=== PATIENT | male | born 1960 | race Caucasian/White ===

== ENCOUNTER 2020-03-01 20:14 | Inpatient (IN) | payer OTHER, SELFPAY ==
--- NOTE | ~2020-03-01 | XR_ITS ---
EXAMINATION: XR chest 2V DATE: 03/01/2020 21:01 INDICATION: Chest pain and tightness TECHNIQUE: PA and lateral views of the chest are obtained. COMPARISON: None available FINDINGS: The lungs are free of acute opacities. There is no pleural effusion or pneumothorax. The ca rdiomediastinal silhouette is normal. There is mild thoracic spondylosis. IMPRESSION: 1. No acute cardiopulmonary abnormality. Reviewed, dictated and finalized at location A.
[2020-03-01 20:13] VITALS: BP 134/79; PULSE 89; RESP 20; TEMP 36.7; O2SAT 98
--- NOTE | 2020-03-01 20:28 | ECG_ITS ---
Measurements Intervals [place] Rate: 87 P: 31 GA: 232 QRS: 35 QRSD: 108 T: -11 QT: 383 QTc: 462 Interpretive Statements SINUS RHYTHM WITH FIRST DEGREE AV BLOCK BORDERLINE R WAVE PROGRESSION, ANTERIOR LEADS BORDERLINE ST-T WAVE ABNORMALITY- INF/LAT LEADS BASELINE WANDER- III, AVF, V2 ABNORMAL ECG Electronically Signed On 03-02-2020 7:00:37 CDT by Ronan Downing D.O.
[2020-03-01 20:30] VITALS: BP 139/82; PULSE 87; RESP 21; O2SAT 97
[2020-03-01 20:34] VITALS: PULSE 88
[2020-03-01 20:35] LABS: Basophils Absolute Auto 0.1 K/mm3 (0.0-0.1); Basophils Percent Auto 0.6 % (0.2-1.2); Eosinophils Absolute Auto 0.2 K/mm3 (0-0.3); Eosinophils Percent Auto 2.7 % (0-4.4); Hematocrit 46.3 % (42.0-52.0); Hemoglobin 15.2 g/dL (14.0-18.0); Immature Granulocyte Absolute 0.08 K/mm3 (0.00-0.031); Immature Granulocyte Percent A 0.9 % (0-0.5); Lymphocytes Absolute Auto 1.42 K/mm3 (0.9-3.2); Lymphocytes Percent Auto 16.3 % (18.3-44.2); Mean Corpuscular HGB Conc 32.8 g/dl (32-36); Mean Corpuscular Hemoglobin 30.3 pg (26-34); Mean Corpuscular Volume 92.2 fl (80-100); Mean Platelet Volume 9.9 fl (7.4-10.4); Monocytes Absolute Auto 0.5 K/mm3 (0.1-0.6); Monocytes Percent Auto 6.2 % (2.6-8.5); Neutrophils Absolute Auto 6.4 K/mm3 (1.3-6.7); Neutrophils Percent Auto 73.3 % (45.5-73.1); Platelet Count Result 261 k/mm3 (150-375); Red Blood Count 5.02 M/mm3 (4.6-6.20); Red Cell Distribution Width 13.2 % (11.5-14.5); White Blood Count 8.7 K/mm3 (4.5-10.0)
[2020-03-01 20:54] LABS: Blood Urea Nitrogen 19 mg/dL (9-20); Calcium 8.9 mg/dL (8.4-10.2); Carbon Dioxide 20 mmol/L (22-30); Chloride 105 mmol/L (98-107); Estimated CRCL calculation 86 ml/min; Estimated Glomerular Filt Rate > 60; Glucose 117 mg/dL (75-110); Potassium 3.8 mmol/L (3.4-5.0); Sodium 138 mmol/L (137-145)
--- NOTE | 2020-03-01 20:57 | ED.CHESTPAIN ---
HPI - Chest Pain General Chief Complaint: Chest Pain Stated Complaint: cp History of Present Illness HPI narrative: 60 yo male w/ h/o CAD s/p stent x2 presents to the ED with CP. He has had exertional chest pain for weeks. It has been becoming more frequent and severe. Tonight he was having pain that failed to resolve with rest. The pain is described as constant and sharp. It radiates to the left arm. Associated with SOB. These are similar to the symptoms he was having prior to receiving his stent. He was given nitroglycerin by EMS, which greatly improved the pain. He took aspirin at home. No cough, fever, sick contacts. Related Data Home Medications Medication Instructions Recorded Confirmed amlodipine 10 mg PO DAILY 03/01/20 aspirin [Adult Low Dose Aspirin] 81 mg PO DAILY 03/01/20 citalopram 40 mg PO DAILY 03/01/20 diclofenac sodium 100 mg PO DAILY 03/01/20 loratadine 10 mg PO DAILY 03/01/20 metoprolol tartrate 100 mg PO BID 03/01/20 rosuvastatin 40 mg PO DAILY 03/01/20 Allergies Allergy/AdvReac Type Severity Reaction Status Date / Time No Known Allergies Allergy Unverified 03/01/20 20:37 Review of Systems Review of Systems: All systems reviewed & are unremarkable except as noted in HPI and below Constitutional: Constitutional: Denies chills and Denies fever(s) ENT: Denies sore throat Cardiovascular: Cardiovascular: Reports chest pain and Reports radiating jaw, neck or arm pain Respiratory: Respiratory: Denies cough and Reports dyspnea Gastrointestinal: Gastrointestinal: Denies nausea and Denies vomiting Neurologic: Denies dizziness, Denies numbness and Denies weakness [facility] Past Medical History Medical History (Updated 03/02/20 @ 00:56 by Torito Edwards MD) CAD (coronary artery disease) Surgical History Surgical History H/O cardiac catheterization Stented coronary artery Family History Family History Other Diabetes mellitus Social History Social History Smoking status: Former smoker Tobacco type: cigarettes Second hand tobacco smoke exposure: Yes Alcohol intake: current Drinks per week: 4 Substance use: never Substance use type: does not use Other substance usage details: drinks everclear mixed drinks Spiritual care concerns: No Agree to blood products: Yes Exam Const: General: no acute distress and alert Nutritional Appearance: obese Orientation/consciousness: patient oriented x3 HENMT: Head: normal to inspection Resp: Effort & Inspection: normal respiratory effort Auscultation: clear to auscultation bilaterally Cardio: Rate: regular rate Rhythm: regular rhythm Skin: General skin exam: normal color Neuro: General: patient oriented x3, moves all extremities, no focal motor deficits and CN's II-XI intact bilaterally Speech: normal speech Extrem: General: edema bilateral (trace) Psych: Appearance: grossly normal and well kempt Mental Status: mental status grossly normal Affect: normal affect Attitude: cooperative Thought content: Yes Normal thought content present Course Vital Signs Vital signs: Vital Signs Temperature 36.7 C 03/01/20 20:13 Pulse Rate 89 03/01/20 20:13 Respiratory Rate 20 03/01/20 20:13 Blood Pressure 134/79 03/01/20 20:13 Pulse Oximetry 98 03/01/20 20:13 Temperature 36.7 C 03/01/20 23:20 Pulse Rate 88 03/01/20 23:20 Respiratory Rate 20 03/01/20 23:20 Blood Pressure 152/69 H 03/01/20 23:20 Pulse Oximetry 98 03/01/20 23:20 MDM - Chest Pain MDM Narrative Medical decision making narrative: No sign of acute ischemia on EKG. Mild elevation in troponin. History very concerning for ACS. Will plan to admit. Case discussed with Dr. Medeiros. Recommends heparin. They will see him as a consult tomorrow. Differential Diagnosis Differential diagnosis: Likely unstable angina
[2020-03-01 21:14] LABS: Troponin I 0.115 ng/mL (0.000-0.034)
[2020-03-01 21:37] LABS: Prothrombin Time 12.4 Seconds (11.1-14.7)
[2020-03-01 21:38] LABS: Partial Thromboplastin Time 29.2 SECONDS (22.3-36.8)
[2020-03-01 21:48] LABS: NT Pro B Type Natriuretic Pept 164 PG/ML (5-100)
[2020-03-01] MEDS: NITROGLYCERIN OINTMENT 1 INCH DOSE TRANSDERM (22:41)
[2020-03-01] MEDS: HEPARIN SODIUM 5,000 UNITS/ML VIAL 4000 UNITS IV PUSH (22:45)
[2020-03-01] MEDS: HEPARIN SOD/D5W 100 UNITS/ML 25,000 UNITS/250 ML BAG 10 UNITS IV CONT (22:46)
[2020-03-01 22:54] VITALS: BP 140/78; PULSE 87; RESP 20; O2SAT 98
[2020-03-01 23:20] VITALS: BP 152/69; PULSE 88; RESP 20; TEMP 36.7; O2SAT 98; BMI 41.4
--- NOTE | 2020-03-01 23:32 | PC.NURSE ---
This patient, Kasi Vernon, was admitted to IMU Room 201-01. Patient/family oriented to hospital policies and general routines including ID bracelet, bed and alarms, visiting hours, pain management, procedures, bathroom and other care routines, personal items, smoking policy, room service/diet, and visiting hours. Valuables list has been completed. Information on how to activate the Rapid Response Team has been discussed. Patient/Family are encouraged to report perceived risks to care and to ask questions if they do not understand what they are told or what they should do.
[2020-03-01 23:34] VITALS: BMI 41.2
[2020-03-01 23:39] LABS: Basophils Percent Auto 0.4 % (0.2-1.2); Eosinophils Absolute Auto 0.2 K/mm3 (0-0.3); Eosinophils Percent Auto 1.7 % (0-4.4); Hematocrit 43.2 % (42.0-52.0); Hemoglobin 14.3 g/dL (14.0-18.0); Immature Granulocyte Absolute 0.07 K/mm3 (0.00-0.031); Immature Granulocyte Percent A 0.7 % (0-0.5); Lymphocytes Absolute Auto 1.85 K/mm3 (0.9-3.2); Lymphocytes Percent Auto 19.4 % (18.3-44.2); Mean Corpuscular HGB Conc 33.1 g/dl (32-36); Mean Corpuscular Hemoglobin 30.2 pg (26-34); Mean Corpuscular Volume 91.1 fl (80-100); Monocytes Absolute Auto 0.6 K/mm3 (0.1-0.6); Monocytes Percent Auto 5.8 % (2.6-8.5); Neutrophils Absolute Auto 6.9 K/mm3 (1.3-6.7); Platelet Count Result 287 k/mm3 (150-375); Red Blood Count 4.74 M/mm3 (4.6-6.20); Red Cell Distribution Width 13.1 % (11.5-14.5); White Blood Count 9.5 K/mm3 (4.5-10.0)
[2020-03-01 23:50] LABS: Prothrombin Time 12.8 Seconds (11.1-14.7)
[2020-03-01 23:57] LABS: Partial Thromboplastin Time 198.6 SECONDS (22.3-36.8)
[2020-03-02] VITALS (26 sets, daily range): BP systolic 113–163; BP diastolic 61–105; PULSE 65–99; RESP 12–20; TEMP 36.1–37.5; O2SAT 96–100
[2020-03-02 00:07] LABS: Troponin I 0.762 ng/mL (0.000-0.034)
--- NOTE | 2020-03-02 03:22 | PM.IMHP ---
H&P: HPI History of Present Illness Chief complaint: Chest pain Narrative: Date and time of patient contact: 03/02/2020 at 4:30 a.m. Kasi Vernon is a 60 year old male with a past medical history of hypertension, hyperlipidemia and coronary artery disease who presented to the ER from home via EMS due to chest pain. The patient reports that he had an intense pain across his precordium and down into his left arm. He had been having some dyspnea even with minimal exertion on and off ever since he started having to wear a face mask at work due to COVID-19. On Saturday he started having chest pain while at work that would radiate down his left arm and to a lesser extent into his right arm. He decided to come to the ER when the chest pain occurred while at rest. He reports that the pain had occurred too many times in a row and too frequently over the last week for him to ignore anymore. He reports that it would sometimes last a couple of hours. His pain was an 8/10 at its worst. His pain was improved with nitro given by EMS. patient reported that he had an LA in 2011 and had a stent placed in his RCA and in his ACL. He reportedly had 100% stenosis of his RCA and 90% of his other vessel. It sounds as if he was on dual antiplatelet therapy at least for the 1st year. He denies any cough or congestion. He has not had any fevers or chills. He does have dependent edema but wear support hose at work. He stands for most of his shift at work. He is otherwise in active and lives a sedentary lifestyle. 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 He last saw him 2 years ago and is supposed to see him every 3 years per patient report. He reports that he is taking diclofenac for pain relief. However, he reports that his muscles generally her more than is joints do. He states that he has an old prescription for Flexeril which he takes occasionally. He reports that he has been diagnosed with fibromyalgia in the past. He thinks that he does snore. He rarely feels well rested. He reports that some of his shortness of breath is due to chronic nasal congestion. His doctor has been adjusting his medications to help with his sinus issues. He has chronic postnasal drip. He is supposed have a CT of his sinuses next month. Review of Systems Review of Systems: Narrative: 12 systems were reviewed with pertinent positives and negatives per HPI. Except as documented in the HPI, all other systems were reviewed and are negative. [facility] Past Medical History Medical History (Updated 03/02/20 @ 05:19 by Ashley Gauthier DO) Anxiety Bilateral plantar fasciitis CAD (coronary artery disease) Depression Dyslipidemia Essential hypertension Fibromyalgia Heel spur Obesity Surgical History Surgical History (Updated 03/02/20 @ 03:26 by Ashley Gauthier DO) Cyst of skin and subcutaneous tissue Status post I&D H/O cardiac catheterization 2011 History of hemorrhoidectomy December 2015 Hx of tonsillectomy Stented coronary artery 2 stents 2011 Family History Family History (Updated 03/02/20 @ 05:19 by Ashley Gauthier DO) Mother Osteoporosis Grandparent Heart disease Diabetes mellitus Social History Social History (Updated 03/02/20 @ 05:17 by Ashley Gauthier DO) Social History: Code status: Full code Smoking status: Former smoker Tobacco type: cigarettes Second hand tobacco smoke exposure: Yes Additional smoking assessment comments: He smoked about half a pack per day for 13 years. He quit in 1989. 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 He quit drinking altogether for many years but in last couple of years and started drinking again. He reports that he drinks 3 shots of ever clear mixed in a bottle of Gatorade. He drinks 1 of these each night. He has went a total of 4 days without drinking in the recent past without having withdrawal
[2020-03-02 05:12] LABS: Basophils Percent Auto 0.4 % (0.2-1.2); Eosinophils Absolute Auto 0.2 K/mm3 (0-0.3); Eosinophils Percent Auto 2.9 % (0-4.4); Hematocrit 42.7 % (42.0-52.0); Hemoglobin 14.3 g/dL (14.0-18.0); Immature Granulocyte Absolute 0.06 K/mm3 (0.00-0.031); Immature Granulocyte Percent A 0.7 % (0-0.5); Lymphocytes Absolute Auto 2.47 K/mm3 (0.9-3.2); Mean Corpuscular HGB Conc 33.5 g/dl (32-36); Mean Corpuscular Hemoglobin 30.3 pg (26-34); Mean Corpuscular Volume 90.5 fl (80-100); Mean Platelet Volume 9.6 fl (7.4-10.4); Monocytes Absolute Auto 0.6 K/mm3 (0.1-0.6); Monocytes Percent Auto 7.1 % (2.6-8.5); Neutrophils Absolute Auto 4.8 K/mm3 (1.3-6.7); Neutrophils Percent Auto 58.9 % (45.5-73.1); Platelet Count Result 270 k/mm3 (150-375); Red Blood Count 4.72 M/mm3 (4.6-6.20); White Blood Count 8.2 K/mm3 (4.5-10.0)
[2020-03-02 05:24] LABS: Partial Thromboplastin Time 51.8 SECONDS (22.3-36.8)
[2020-03-02] MEDS: HEPARIN SODIUM 5,000 UNITS/ML VIAL 4000 UNITS IV PUSH (06:21)
--- NOTE | 2020-03-02 08:17 | PM.CNCAR ---
Assessment and Plan Assessment and plan (1) Non-ST elevation ME (NSTEMI): Code(s): I21.4 - Non-ST elevation (NSTEMI) myocardial infarction Status: Acute Assessment and Plan: 60 y/o with h/o CAD s/p PCI in 2011 who presents now with chest pain and NSTMI Pain free now. Check serial EKG follow trop to peak. Last was 1.5 Continue heparin drip Check 2D echocardiogram Will plan [facility] today at noon. Procedure explained to patient in details including risk and benefits. Patient is agreeable to proceed. Continue ASA. Would hold off loading with second antiplatlet agent till anatomy is identified as may potentially need CABG. Continue Crestor. Continue Metoprolol. (2) HTN (hypertension): Code(s): I10 - Essential (primary) hypertension Status: Acute Assessment and Plan: Continue Metoprolol and Amlodipine. (3) HLD (hyperlipidemia): Code(s): E78.5 - Hyperlipidemia, unspecified Status: Acute Assessment and Plan: Continue Crestor. History of Present Illness History of Present Illness Consult date/time: 03/02/20 08:17 60 y/o with h/o obesity, HTN, HLD, CAD who presented with chest pain. Patient reports dyspnea over the last few weeks that he has been contributing to the N95 mask he has been wearing at work. Since Saturday he started developing chest initially with exertion (at work) then progressed to develop with minimal exertion like walking to the bathroom. He describe the pain as pressure across the chest that radiates down to the left arm. His pain improved since received nitro in ER. He had residual pain last night that resolved after had nitro paste placed. EKG shows normal sinus rhythm with intra ventricular delay and lateral ST changes. Trop came positive at 1.5 consistent with NSTMI. Patient underwent PCI with 2 stents at [facility] in 2011 (per pt one in RCA for 100% stenosis and another in artery he does not recall). He is not sure if he had heart attack at that time or not. 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 He has been compliant though with his medications including ASA and Crestor. He quit smoking in . No family history of heart disease. Reason For Visit: Chest pain Review of Systems Review of Systems: All systems reviewed & are unremarkable except as noted in HPI and below Constitutional: Constitutional: Denies fatigue and Denies headache(s) Eyes: Eyes: Denies blurry vision ENT: Reports Normal hearing present and Denies headache(s) Cardiovascular: Cardiovascular: Reports chest pain, Denies diaphoresis, Denies pedal edema, Denies leg edema, Denies lightheadedness, Denies palpitations and Denies dyspnea Respiratory: Respiratory: Denies cough and Reports dyspnea Gastrointestinal: Gastrointestinal: Denies abdominal pain Musculoskeletal: Musculoskeletal: Denies back pain Neurologic: Reports Normal hearing present and Denies headache(s) Psychiatric: Psychiatric: Denies anxiety Endocrine: Endocrine: Denies fatigue and Denies palpitations PMFSH Past Medical History Medical History (Updated 03/02/20 @ 09:34 by Oj Medeiros MD) Anxiety Bilateral plantar fasciitis CAD (coronary artery disease) Depression Dyslipidemia Essential hypertension Fibromyalgia Heel spur Obesity Surgical History Surgical History (Updated 03/02/20 @ 03:26 by Ashley Gauthier DO) Cyst of skin and subcutaneous tissue Status post I&D H/O cardiac catheterization 2011 History of hemorrhoidectomy December 2015 Hx of tonsillectomy Stented coronary artery 2 stents 2011 Family History Family History (Updated 03/02/20 @ 05:19 by Ashley Gauthier DO) Mother Osteoporosis Grandparent Heart disease Diabetes mellitus Social History Social History (Updated 03/02/20 @ 05:17 by Ashley Gauthier DO) Social History: Code status: Full code Smoking status: Former smoker Tobacco type: cigarettes Se[place]
--- NOTE | 2020-03-02 08:43 | ECHO_ITS ---
Patient Info Name: Kasi Vernon Age: 60 years : 1960 Gender: Male Ht: 66 in Wt: 255 lbs BSA: 2.38 m2 HR: 83 bpm BP: 152 / 68 mmHg Technical Quality: Good Exam Date: 03/02/2020 10:17 AM Exam Location: [facility] Pulmonary Exam Room: [facility] Patient Status: Inpatient Admit Date: 03/01/2020 Staff Ordering Physician: Oj Medeiros MD (aria/edis) Staff Toxicologist: Genia Sanabria RDCS Attending Provider: Ashley Gauthier DO Exam Type: CA echo doppler color flow Study Info Indications - cad NSTEMI Complete two-dimensional, color flow and Doppler transthoracic echocardiogram is performed. Summary 1. Left ventricular chamber dimension is top normal in size. 2. Left ventricular systolic function is normal, estimated at 55-60%. 3. There is no aortic valve sclerosis. 4. There is no mitral valve regurgitation. Left Ventricle Left ventricular chamber dimension is top normal in size. Left ventricular systolic function is normal, estimated at 55-60%. There is no increased left ventricular wall thickness. Left ventricular septal wall motion is normal. The left ventricular diastolic function is grade I diastolic dysfunction. Right Ventricle Right ventricular chamber dimension is normal. Right ventricular systolic function is normal. Left Atria Left atrial chamber dimension is normal. Right Atria Right atrial chamber dimension is normal. Aortic Valve The aortic valve is trileaflet. There is no aortic valve sclerosis. There is no aortic valve stenosis. There is no aortic valve regurgitation. Pulmonic Valve The pulmonic valve is not well visualized. There is no pulmonic valve stenosis. There is no pulmonic regurgitation. Mitral Valve The mitral valve leaflets are mildly calcified. There is no mitral valve stenosis. There is no mitral valve regurgitation. Tricuspid Valve The tricuspid valve leaflets are normal. There is no significant tricuspid valve stenosis. There is trace tricuspid valve regurgitation. No pulmonary hypertension, estimated pulmonary arterial systolic pressure is 31 mmHg. Pericardium/Pleural The pericardium appears normal. There is no pericardial effusion. Inferior Vena Cava Normal inferior vena cava with >50% collapse upon inspiration. Aorta The aortic root size at the sinus of Valsalva is normal. The prox ascending aorta size is normal. Left Ventricular Outflow Tract Name Value Normal LVOT 2D LVOT Diameter 2.1 cm LVOT Doppler LVOT Peak Gradient 4 mmHg LVOT Mean Gradient 3 mmHg LVOT VTI 20 cm LVOT VTI/AV VTI Ratio 0.8 LVOT Stroke Volume 69 ml LVOT CO 17.0 l/min LVOT CI 7.1 l/min/m2 Pulmonic Valve Name Value Normal PV Doppler
[2020-03-02] MEDS: CITALOPRAM HYDROBROMIDE 20 MG TABLET 40 MG PO (09:34)
[2020-03-02] MEDS: ROSUVASTATIN 10 MG TABLET 40 MG PO (09:35)
[2020-03-02] MEDS: METOPROLOL TARTRATE 50 MG TAB 100 MG PO ×2 (09:36→17:20)
[2020-03-02] MEDS: ASPIRIN 81 MG ENTERIC TABLET PO (09:36)
[2020-03-02] MEDS: LORATADINE 10 MG TABLET PO (09:38)
[2020-03-02] MEDS: AMLODIPINE BESYLATE 5 MG TABLET 10 MG PO (09:38)
[2020-03-02 10:23] LABS: Blood Urea Nitrogen 14 mg/dL (9-20); Calcium 8.8 mg/dL (8.4-10.2); Carbon Dioxide 24 mmol/L (22-30); Chloride 107 mmol/L (98-107); Estimated CRCL calculation 94 ml/min; Estimated Glomerular Filt Rate > 60; Glucose 112 mg/dL (75-110); Potassium 3.4 mmol/L (3.4-5.0); Sodium 138 mmol/L (137-145)
--- NOTE | 2020-03-02 11:13 | PC.NURSE ---
Patient left floor to Cardiac Emblem Cutter for procedure
--- NOTE | 2020-03-02 11:26 | WPDMODSED ---
Moderate Sedation Note-Pt Data Patient Data Allergies Allergy/AdvReac Type Severity Reaction Status Date / Time No Known Allergies Allergy Unverified 03/01/20 20:37 Home Medications Medication Instructions Recorded Confirmed Type amlodipine 10 mg PO DAILY 03/01/20 03/02/20 History aspirin [Adult Low Dose Aspirin] 81 mg PO DAILY 03/01/20 03/02/20 History citalopram 40 mg PO DAILY 03/01/20 03/02/20 History diclofenac sodium 75 mg PO BID 03/01/20 03/02/20 History loratadine 10 mg PO DAILY 03/01/20 03/02/20 History metoprolol tartrate 100 mg PO BID 03/01/20 03/02/20 History rosuvastatin 40 mg PO DAILY 03/01/20 03/02/20 History Current Medications: Active Medications Amlodipine Besylate (Norvasc) 10 mg PO DAILY [facility] Last Admin: 03/02/20 09:38 Dose: 10 mg Documented by: Aspirin (Aspirin Ec) 81 mg PO DAILY [facility] Last Admin: 03/02/20 09:36 Dose: 81 mg Documented by: Citalopram Hydrobromide (Celexa) 40 mg PO DAILY [facility] Last Admin: 03/02/20 09:34 Dose: 40 mg Documented by: Heparin Sodium (Porcine) (Heparin Sodium) 4,000 units IV PUSH PRN PRN PRN Reason: aPTT less than 55 seconds Last Admin: 03/02/20 06:21 Dose: 4,000 units Documented by: Heparin Sodium (Porcine) (Heparin Sodium) 3,500 units IV PUSH PRN PRN PRN Reason: aPTT 55 - 70 seconds Heparin Sodium/Dextrose (Heparin Sodium/D5w 100 Units/Ml) 25,000 units in 250 mls @ 13 mls/hr IV CONT .[id number] [facility]; Protocol Last Titration: 03/02/20 06:21 Dose: 1,300 units/hr, 13 mls/hr Documented by: Loratadine (Claritin) 10 mg PO DAILY [facility] Last Admin: 03/02/20 09:38 Dose: 10 mg Documented by: Metoprolol Tartrate (Lopressor) 100 mg PO BID [facility] Last Admin: 03/02/20 09:36 Dose: 100 mg Documented by: Morphine Sulfate (Morphine Sulfate Inj) 2 mg IV PUSH Q2H PRN PRN Reason: Pain Rated 7-10 Nitroglycerin (Nitrostat Subl 0.4 Mg (1/150)) 0.4 mg SUBLINGUAL Q5MIN PRN PRN Reason: Chest Pain Rosuvastatin Calcium (Crestor) 40 mg PO DAILY YEHU[facility] Last Admin: 03/02/20 09:35 Dose: 40 mg Documented by: Sedation/Anesthesia: No previous sedation/anesthesia problems (including family history). [facility] Past Medical History Medical History (Updated 03/02/20 @ 09:34 by Oj Medeiros MD) Anxiety Bilateral plantar fasciitis CAD (coronary artery disease) Depression Dyslipidemia Essential hypertension Fibromyalgia Heel spur Obesity Surgical History Surgical History (Updated 03/02/20 @ 03:26 by Ashley Gauthier DO) Cyst of skin and subcutaneous tissue Status post I&D H/O cardiac catheterization 2011 History of hemorrhoidectomy December 2015 Hx of tonsillectomy Stented coronary artery 2 stents 2011 Family History Family History (Updated 03/02/20 @ 05:19 by Ashley Gauthier DO) Mother Osteoporosis Grandparent Heart disease Diabetes mellitus Social History Social History (Updated 03/02/20 @ 05:17 by Ashley Gauthier DO) Social History: Code status: Full code Smoking status: Former smoker Tobacco type: cigarettes Second hand tobacco smoke exposure: Yes Additional smoking assessment comments: He smoked about half a pack per day for 13 years. He quit in 1989. 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 He quit drinking altogether for many years but in last couple of years and started drinking again. He reports that he drinks 3 shots of ever clear mixed in a bottle of Gatorade. He drinks 1 of these each night. He has went a total of 4 days without drinking in the recent past without having withdrawal symptoms. Substance use: never Substance use type: does not use Living arrangements: alone Additional living arrangements comments: The patient is single and has never been . He lives alone. He does not have any children. He has 2 sisters who are reportedly healthy. He states that his mom and dad are healthy but it sounds as if his
--- NOTE | 2020-03-02 12:06 | WPDCARDPROC ---
Cardiac Cath Procedure Note Date of procedure:: 03/02/20 Performing physician:: Bishop Wolf MD Procedure: 1. Left heart catheterization, selective coronary angiogram. 2. Left ventricular angiogram. 3. Right common femoral artery angiogram, and Angio-Seal device for arterial hemostasis 4. Conscious sedation. Starting time is 11:40 a.m. ending time is 12:05 p.m. Curing Oven Tender: Dr. Bishop Wolf Complications: None. Sedation: Conscious sedation, local anesthesia, using 1 mg of Versed said, 25 mcg of fentanyl, and using 1% lidocaine for local anesthesia. Technique: After informed consent was obtained from patient, was brought to the laboratory administrative director, put in the laboratory administrative director table, prepped and draped in usual sterile fashion. Five Indonesian sheath was inserted into the right common femoral artery, through the sheath 5 Indonesian JL4 catheter inserted, advanced to the left coronary artery, left coronary artery angiogram was obtained. The catheter was exchanged over guidewire into a 5 Indonesian JR4 catheter, advanced to the right coronary artery, right coronary artery angiogram was obtained. The catheter then was exchanged over guidewire into this 5 Indonesian pigtail catheter, advanced to left ventricle, left ventricular angiogram was obtained. The catheter then was pulled, the sheath was pulled applying Angio-Seal device for arterial hemostasis. Patient tolerated the procedure no complication, taken from the laboratory administrative director to his room in stable condition stable vital signs. Hemodynamics: aortic pressure 124/60 . LV pressure 124/04 with LVEDP of 18 mmHg Angiographic findings: Left main: Medium size artery, showed distal LAD 50-60% disease Lad medium size artery showed ostial LAD with 60% disease followed by a long lesion of narrowing 90%, extending to the bifurcation lesion at the level of diagonal branch which is large sizable diagonal branch and showed 90% bifurcation disease, distal LAD there is another lesion about 90% narrowing but there is enough landing zone for [place] Left circumflex artery, medium size artery, n showed ostial 75% ulcerative plaque RCA: Dominant vessel, showed mid RCA significant irregularity with 25% disease. LV: Mildly dilated left ventricle with moderate left ventricular systolic dysfunction with anterior hypokinesis EF 40%. Summary left main disease with 2 vessel coronary disease and complex lesions in LAD and ostial circ, along with moderate left ventricular systolic dysfunction Recommendation: Maximum medical treatment. Patient will benefit from coronary bypass surgery [place] to LAD, saphenous venous graft to diagonal branch saphenous venous graft to obtuse marginal 1 and 2. Will arrange for transfer to [facility] for that.
[2020-03-02] MEDS: SODIUM CHLORIDE 0.9% IV 1,000 ML 125 ML IV CONT (14:14)
[2020-03-02 19:27] LABS: Partial Thromboplastin Time 56.6 SECONDS (22.3-36.8)
[2020-03-02] MEDS: HEPARIN SODIUM 5,000 UNITS/ML VIAL 3500 UNITS IV PUSH (20:01)
[2020-03-02] MEDS: HEPARIN SOD/D5W 100 UNITS/ML 25,000 UNITS/250 ML BAG 15 UNITS IV CONT (20:01)
--- NOTE | 2020-03-02 21:30 | PC.NURSE ---
[facility] HERE PT. DISCHARGED TO [facility] RN GIVEN UPDATE ON PT. CONDITION.
--- NOTE | 2020-03-03 18:18 | P.TS_ITS ---
Transfer Discharge Sum: Prov Provider Date of admission: 03/01/20 22:57 Primary care physician: UNKNOWN,DOCTOR Admitting clinician: Ashley Gauthier DO Consults: 03/01/20 Consult to Physician Routine Comment: Consulting Provider: Oj Medeiros Reason for consultation: ACS Has provider been notified: Yes DS: Diagnosis Admitting Diagnosis Admitting Diagnosis: Non-ST elevation (NSTEMI) myocardial infarction Discharge Diagnosis (1) Non-ST elevation [place] (NSTEMI): Code(s): I21.4 - Non-ST elevation (NSTEMI) myocardial infarction Status: Acute Assessment and Plan: * Patient was treated with IV heparin beta-thomas, statin, aspirin, and nitrate. Pain subsided and troponin elevated to 1.5. * Take to the cardiac catheterization lab for triple-vessel disease with found and transferred to [facility] Dr. Owen cardiothoracic surgery (2) Snoring: Code(s): R06.83 - Snoring Status: Acute Assessment and Plan: * Will need follow-up for apnea in the future. (3) HTN (hypertension): Code(s): I10 - Essential (primary) hypertension Status: Acute Assessment and Plan: Pressure well controlled continue beta-thomas calcium channel thomas (4) Hyperlipidemia: Code(s): E78.5 - Hyperlipidemia, unspecified Status: Acute Assessment and Plan: Continue statin Transfer Discharge Sum: Med Medications Active and Home Medications: Home Medications amlodipine 10 mg PO DAILY 03/01/20 [History Confirmed 03/02/20] aspirin [Adult Low Dose Aspirin] 81 mg PO DAILY 03/01/20 [History Confirmed 03/02/20] citalopram 40 mg PO DAILY 03/01/20 [History Confirmed 03/02/20] diclofenac sodium 75 mg PO BID 03/01/20 [History Confirmed 03/02/20] loratadine 10 mg PO DAILY 03/01/20 [History Confirmed 03/02/20] metoprolol tartrate 100 mg PO BID 03/01/20 [History Confirmed 03/02/20] rosuvastatin 40 mg PO DAILY 03/01/20 [History Confirmed 03/02/20] Transfer Discharge Sum: Hosp Hospital Course Hospital course: Kasi Vernon is a 60 year old hypertensive white male with known coronary disease and status post 2 stents some 8 years ago.. After admission pain subsided with a treatment for his acute coronary syndrome. He was taken to the clinical laboratory technologist where he is found to have triple-vessel disease and transferred to [facility] under the care of Dr. Segundo thoracic surgery. EF was normal at 55 to 60% by catheterization and echo Time Spent with Patient Time attestation: Total time spent providing and/or coordinating transfer services: 35 minutes Exam Narrative: Exam Narrative: Condition on transfer Blood pressure 114/70 pulse 68 sat 97% on room air afebrile Lungs clear CV regular rate rhythm Abdomen is soft nontender Extremities without edema distal pulse 2 + DS: Data Data Completed and Pending Labs on day of discharge: Labs from last 24 hours 03/02/20 18:52 APTT 56.6 H
== END 2020-03-02 21:30 | disposition short-term general hospital (02) | DRG 281 ==
LOC: ANHED 20:46 → ANHIMU 03-02 00:56
PROVIDERS: Emergency Medicine; Internal Medicine; Specialist; Admitting Provider Internal Medicine; Emergency Provider Emergency Medicine; Visit Provider Internal Medicine
PROC: 4A023N7 Measurement of Cardiac Sampling and Pressure, Left Heart, Percutaneous Approach (ICD-10-PCS; CPT 93452; principal; 2020-03-02 13:00)
PROC: 4A023N7 Measurement of Cardiac Sampling and Pressure, Left Heart, Percutaneous Approach (ICD-10-PCS; 2020-03-02 13:00)
DX: I21.4 Non-ST elevation (NSTEMI) myocardial infarction (principal); Z68.41 Body mass index [BMI] 40.0-44.9, adult; E66.9 Obesity, unspecified; I25.10 Atherosclerotic heart disease of native coronary artery without angina pectoris; I10 Essential (primary) hypertension; E78.5 Hyperlipidemia, unspecified; M79.7 Fibromyalgia; R06.83 Snoring; F41.8 Other specified anxiety disorders; Z87.891 Personal history of nicotine dependence; Z95.5 Presence of coronary angioplasty implant and graft
CPT/HCPCS: 36415; 71046; 80048; 83880; 84484; 85025; 85610; 85730; 93005; 93306; 93458; 96365; 99291; A9270; C1760; C1887; C1894; G0269; J1644; J2250; J3010; J7030; J7040

== ENCOUNTER 2021-02-26 20:34 | Inpatient (IN) | payer OTHER, SELFPAY ==
--- NOTE | ~2021-02-26 | CT_ITS ---
EXAMINATION: CTA chest PE protocol DATE: 02/26/2021 22:54 INDICATION: Shortness of breath, chest pain. Elevated d-dimer. TECHNIQUE: Computed tomography angiography (CTA) of the chest was performed with 100 mL Omnipaque-350 intravenous contrast timed to evaluate the pulmonary arteries. Coronal maximum intensity projection 3D-reconstructions were created by the technologist. Automated exposure control and iterative reconst ruction technique were employed. Exam dose: 955.65 mGy-cm total exam DLP. COMPARISON: 02/26/2021 PA and lateral chest FINDINGS: There is diagnostic contrast enhancement of the pulmonary arteries and no evidence of pulmo nary embolism. Status post sternotomy, coronary artery bypass graft surgery. Normal heart size. No pericardial effus ion. No hilar or mediastinal mass lesion or lymphadenopathy. There is thoracic aortic calcification but no aneurysm or dissection. Small sliding hiatal hernia. Normal morphology of the adrenal glands. Diverticulosis of the descending colon. Minimal dependent lower lobe atelectasis, right greater than left. Otherwise no pulmonary infiltrate or consolidation or pulmonary mass lesion. No suspicious osteolytic or osteoblastic lesions. IMPRESSION: No evidence of pulmonary embolism Reviewed, dictated and finalized at [facility]. Reviewed, dictated and finalized at location [facility].
--- NOTE | ~2021-02-26 | XR_ITS ---
XR chest 2V DATE: 02/26/2021 21:05 INDICATION: Left-sided chest pain, shortness of breath. Status post CABG. Hypertension. TECHNIQUE: PA and lateral views COMPARISON: 03/01/2020 2 view chest FINDINGS: Status post sternotomy. Normal heart size. No hilar or mediastinal enlargement. No pulmonary infiltrate or consolidation, ple ural effusion or pulmonary vascular congestion or pneumothorax is detected. IMPRESSION: Status post sternotomy since 03/01/2020 No active cardiopulmonary disease Reviewed, dictated and finalized at location [facility].
[2021-02-26 20:40] VITALS: BP 171/71; PULSE 77; RESP 17; TEMP 36.6; O2SAT 99
--- NOTE | 2021-02-26 20:40 | ECG_ITS ---
Measurements Intervals Alvin Rate: 75 P: 33 MA: 281 QRS: 73 QRSD: 118 T: 34 QT: 405 QTc: 453 Interpretive Statements SINUS RHYTHM WITH FIRST DEGREE AV BLOCK POSSIBLE LEFT ATRIAL ENLARGEMENT CONSIDER INFERIOR INFARCT, AGE INDETERMINATE BORDERLINE ST-T WAVE ABNORMALITY- HIGH LATERAL LEADS BASELINE ARTIFACT- V1-V2 ABNORMAL ECG Electronically Signed On 02-26-2021 22:02:41 CDT by Ronan Downing D.O.
--- NOTE | 2021-02-26 21:02 | ED.GENADULT ---
HPI - General Adult General Chief complaint: Chest Pain Stated complaint: im having a heart attack Time Seen by Provider: 02/26/21 20:42 Source: patient History of Present Illness HPI narrative: Patient is a 61 y/o male complaining of left sided chest pain starting 1:00 PM today. He describes his chest pain as sharp with some radiation to left arm. He rates his pain as 5/10. There is no alleviating or exacerbating factor. He also has been having SOB for 1-2 weeks. Related Data Home Medications Medication Instructions Recorded Confirmed amlodipine 10 mg PO DAILY 03/01/20 03/02/20 aspirin [Adult Low Dose Aspirin] 81 mg PO DAILY 03/01/20 03/02/20 citalopram 40 mg PO DAILY 03/01/20 03/02/20 diclofenac sodium 75 mg PO BID 03/01/20 03/02/20 loratadine 10 mg PO DAILY 03/01/20 03/02/20 metoprolol tartrate 100 mg PO BID 03/01/20 03/02/20 rosuvastatin 40 mg PO DAILY 03/01/20 03/02/20 Allergies Allergy/AdvReac Type Severity Reaction Status Date / Time No Known Allergies Allergy Unverified 03/01/20 20:37 Review of Systems Constitutional: Constitutional: Denies chills, Denies fever(s), Denies headache(s) and Denies weakness Eyes: Eyes: Denies blurry vision ENT: Denies headache(s) and Denies neck pain Cardiovascular: Cardiovascular: Reports chest pain and Reports dyspnea Respiratory: Respiratory: Denies cough and Reports dyspnea Gastrointestinal: Gastrointestinal: Denies abdominal pain, Denies diarrhea, Denies nausea and Denies vomiting Genitourinary: Genitourinary: Denies hematuria and Denies dysuria Musculoskeletal: Musculoskeletal: Denies back pain and Denies neck pain Neurologic: Denies headache(s) and Denies weakness [facility] Past Medical History Medical History Anxiety Bilateral plantar fasciitis CAD (coronary artery disease) Depression Dyslipidemia Essential hypertension Fibromyalgia Heel spur Obesity Surgical History Surgical History Cyst of skin and subcutaneous tissue Status post I&D H/O cardiac catheterization 2011 History of hemorrhoidectomy December 2015 Hx of tonsillectomy Stented coronary artery 2 stents 2012 Family History Family History Mother Osteoporosis Grandparent Heart disease Diabetes mellitus Social History Social History Social History: Code status: Full code Smoking status: Former smoker Tobacco type: cigarettes Second hand tobacco smoke exposure: Yes Additional smoking assessment comments: He smoked about half a pack per day for 13 years. He quit in 1989. Alcohol intake: current Drinks per week: 4 Substance use: never Substance use type: does not use Additional living arrangements comments: The patient is single and has never been . He lives alone. He does not have any children. He has 2 sisters who are reportedly healthy. He states that his mom and dad are healthy but it sounds as if his mom is developing osteoporosis. 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 Gender identity (if verbalized by the patient): Male Spiritual care concerns: No Agree to blood products: Yes Exam Const: General: no acute distress and well developed Orientation/consciousness: oriented to person, oriented to place, oriented to time and patient oriented x3 HENMT: Head: normocephalic Ears: external ears normal General nose exam: Normal external nose present Eyes: General: appearance normal, both eyes and all related structures Conjunctivae: conjunctivae normal Neck: Neck: normal visual inspection and full ROM Chest: Chest palpation & inspection: normal inspection of the chest and no tenderness Resp: Effort & Inspection: normal respiratory effort Ausculta
[2021-02-26 21:22] LABS: Basophils Absolute Auto 0.1 K/mm3 (0.0-0.1); Basophils Percent Auto 0.6 % (0.2-1.2); Eosinophils Absolute Auto 0.2 K/mm3 (0-0.3); Eosinophils Percent Auto 2.5 % (0-4.4); Hematocrit 47.8 % (42.0-52.0); Hemoglobin 16.3 g/dL (14.0-18.0); Immature Granulocyte Absolute 0.08 K/mm3 (0.00-0.031); Immature Granulocyte Percent A 0.8 % (0-0.5); Lymphocytes Absolute Auto 2.51 K/mm3 (0.9-3.2); Lymphocytes Percent Auto 26.3 % (18.3-44.2); Mean Corpuscular HGB Conc 34.1 g/dl (32-36); Mean Corpuscular Hemoglobin 29.9 pg (26-34); Mean Corpuscular Volume 87.5 fl (80-100); Mean Platelet Volume 10.2 fl (7.4-10.4); Monocytes Absolute Auto 0.6 K/mm3 (0.1-0.6); Monocytes Percent Auto 6.4 % (2.6-8.5); Neutrophils Absolute Auto 6.1 K/mm3 (1.3-6.7); Neutrophils Percent Auto 63.4 % (45.5-73.1); Platelet Count Result 307 k/mm3 (150-375); Red Blood Count 5.46 M/mm3 (4.6-6.20); Red Cell Distribution Width 12.8 % (11.5-14.5); White Blood Count 9.6 K/mm3 (4.5-10.0)
[2021-02-26 21:31] LABS: Anion Gap 9 mmol/L (8-16); Blood Urea Nitrogen 23 mg/dL (9-20); Calcium 9.5 mg/dL (8.4-10.2); Carbon Dioxide 29 mmol/L (22-30); Chloride 101 mmol/L (98-107); Estimated CRCL calculation 76 ml/min; Estimated Glomerular Filt Rate > 60; Glucose 163 mg/dL (75-110); Potassium 3.9 mmol/L (3.4-5.0); Sodium 139 mmol/L (137-145)
[2021-02-26 21:36] LABS: INR 0.8
[2021-02-26 21:37] LABS: Partial Thromboplastin Time 28.6 SECONDS (22.3-36.8)
[2021-02-26 21:42] LABS: Troponin I 0.023 ng/mL (0.000-0.034)
[2021-02-27] VITALS (18 sets, daily range): BP systolic 106–136; BP diastolic 48–72; PULSE 58–76; RESP 18–20; TEMP 35.9–36.7; O2SAT 94–100; BMI 39.1
--- NOTE | 2021-02-27 | ECHO_ITS ---
Patient Info Name: Kasi Vernon Age: 61 years : 1960 Gender: Male Ht: 66 in Wt: 242 lbs BSA: 2.31 m2 HR: 59 bpm BP: 127 / 69 mmHg Technical Quality: Good Exam Date: 02/27/2021 4:32 PM Exam Location: [facility] Pulmonary Exam Room: [facility] Patient Status: Inpatient Admit Date: 02/27/2021 Staff Ordering Physician: Oj Medeiros MD Schedule Announcer: Genia Sanabria RDCS Attending Provider: Bishop Wolf MD Exam Type: CA echo doppler color flow Study Info Complete two-dimensional, color flow and Doppler transthoracic echocardiogram is performed. Summary 1. Complete two-dimensional, color flow and Doppler transthoracic echocardiogram is performed. 2. Left ventricular systolic function is normal, estimated at 50-55%. 3. The left ventricular diastolic function is grade I diastolic dysfunction. Left Ventricle Left ventricular chamber dimension is normal. Left ventricular systolic function is normal, estimated at 50-55%. There is no increased left ventricular wall thickness. Left ventricular septal wall motion is normal. The left ventricular diastolic function is grade I diastolic dysfunction. Right Ventricle Right ventricular chamber dimension is normal. Right ventricular systolic function is normal. Left Atria Left atrial chamber dimension is normal. Right Atria Right atrial chamber dimension is normal. Aortic Valve The aortic valve is trileaflet. There is no aortic valve sclerosis. There is no aortic valve stenosis. There is no aortic valve regurgitation. Pulmonic Valve The pulmonic valve is normal. There is no pulmonic valve stenosis. There is no pulmonic regurgitation. Mitral Valve The mitral valve has normal leaflets. There is no mitral valve stenosis. There is no mitral valve regurgitation. Tricuspid Valve The tricuspid valve leaflets are normal. There is no significant tricuspid valve stenosis. There is trace tricuspid valve regurgitation. Pericardium/Pleural The pericardium appears normal. There is no pericardial effusion. Inferior Vena Cava Normal inferior vena cava with >50% collapse upon inspiration consistent with normal right atrial pressure, 10 mmHg. Aorta The aortic root size at the sinus of Valsalva is normal. The prox ascending aorta size is normal. Left Ventricular Outflow Tract Name Value Normal LVOT 2D LVOT Diameter 2.1 cm LVOT Doppler LVOT Peak Gradient 4 mmHg LVOT Mean Gradient 2 mmHg LVOT VTI 19 cm LVOT VTI/AV VTI Ratio 0.8 LVOT Stroke Volume 67 ml LVOT CO 12.3 l/min LVOT CI 5.3 l/min/m2 Pulmonic Valve Name Value Normal PV Doppler PV Peak Gradient 3 mmHg
[2021-02-27 00:35] LABS: Troponin I 0.134 ng/mL (0.000-0.034)
--- NOTE | 2021-02-27 01:30 | ADMGEN ---
This patient, Kasi Vernon, was admitted to IMU Room 207-01. Patient/family oriented to hospital policies and general routines including ID bracelet, bed and alarms, visiting hours, pain management, procedures, bathroom and other care routines, personal items, smoking policy, room service/diet, and visiting hours. Information on how to activate the Rapid Response Team has been discussed. Patient/Family are encouraged to report perceived risks to care and to ask questions if they do not understand what they are told or what they should do.
[2021-02-27] MEDS: ASPIRIN 81 MG CHEWABLE TABLET PO (08:35)
--- NOTE | 2021-02-27 09:35 | PM.IMHP ---
H&P: HPI History of Present Illness Date/Time: 02/27/21 09:35 Patient is a 60-year-old man with history of CAD s/p PCI (to RCA 2011 [facility]), more recently s/p CABG X3 in February 2020 (BENTON to LAD,SVG to D1, SVG to OM. RCA stent was patent hence did not receive graft to RCA/PDA), HTN, HLD, depression who presents with chest pain He woke up around 3:00 am yesterday with chest pain, that is sharp and radiates down to left arm. He took SL nitro and 4 baby aspirin with relief of the pain and went back to sleep. During the day around noon while at work he developed chest pain again that he reports it was better while using his Hands at work but worse when he had to walk long distance. He took nitro again with no relief so he decided to seek medical attention. He reports that he never needed any SL nitro since his CABG up until now. He reports nausea with the chest pain and shortness of breath. Troponin was mild elevated at 0.1 and 0.4. His D dimer was also elevated and he had CT of chest with no PE. He feels better now except with deep breathing. I saw patient in clinic last week when he reported mild dyspnea on exertion with recent weight gain but no chest pain. Lasix was added to his regimen when he never started yet. Quit smoking . 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 Inferior Q waves. Unchanged from his EKG in the office last week on 02.23.21 09/27/20 ECHO: LV chamber size is normal. LV wall thickness is normal. The estimated left ventricle ejection fraction is 55-60% (normal). LV relaxation is impaired. Left atrium chamber is mildly dilated. There is mild thickening of mitral valve anterior and posterior leaflets. There is trace mitral regurgitation. There is mild pulmonic regurgitation. Chief Complaint: Chest pain Review of Systems Review of Systems: All systems reviewed & are unremarkable except as noted in HPI and below Constitutional: Constitutional: Denies fatigue and Denies headache(s) Eyes: Eyes: Denies blurry vision ENT: Reports Normal hearing present and Denies headache(s) Cardiovascular: Cardiovascular: Denies chest pain, Denies diaphoresis, Denies pedal edema, Denies leg edema, Denies lightheadedness, Denies palpitations and Denies dyspnea Respiratory: Respiratory: Denies cough and Denies dyspnea Gastrointestinal: Gastrointestinal: Denies abdominal pain Musculoskeletal: Musculoskeletal: Denies back pain Neurologic: Reports Normal hearing present and Denies headache(s) Psychiatric: Psychiatric: Denies anxiety Endocrine: Endocrine: Denies fatigue and Denies palpitations PMFSH Past Medical History Medical History Anxiety Bilateral plantar fasciitis CAD (coronary artery disease) Depression Dyslipidemia Essential hypertension Fibromyalgia Heel spur Obesity Surgical History Surgical History Cyst of skin and subcutaneous tissue Status post I&D H/O cardiac catheterization 2011 History of hemorrhoidectomy December 2015 Hx of tonsillectomy Stented coronary artery 2 stents 2011 Family History Family History (Updated 02/27/21 @ 01:39 by Michelle Harrell RN) Mother Osteoporosis Kidney stone Grandparent Diabetes mellitus Heart disease Father Cardiovascular disease Social History Social History Social History: Code status: Full code Smoking packs per day: 0.5 Smoking cigarettes per day: 10.0 Years smoked: 13 Smoking pack-years: 6.50 Smoking status: Former smoker Second hand tobacco smoke exposure: Yes Smoking end date: 02/27/90 Alcohol intake: former Drinks per week: 4 Substance use: never Substance use type: does not use Additional living arrangements commen
[2021-02-27 10:46] LABS: Basophils Absolute Auto 0.1 K/mm3 (0.0-0.1); Basophils Percent Auto 0.6 % (0.2-1.2); Eosinophils Absolute Auto 0.3 K/mm3 (0-0.3); Eosinophils Percent Auto 3.1 % (0-4.4); Hematocrit 42.8 % (42.0-52.0); Hemoglobin 14.7 g/dL (14.0-18.0); Immature Granulocyte Absolute 0.04 K/mm3 (0.00-0.031); Immature Granulocyte Percent A 0.5 % (0-0.5); Lymphocytes Absolute Auto 1.94 K/mm3 (0.9-3.2); Lymphocytes Percent Auto 24.1 % (18.3-44.2); Mean Corpuscular HGB Conc 34.3 g/dl (32-36); Mean Corpuscular Hemoglobin 29.5 pg (26-34); Mean Corpuscular Volume 85.9 fl (80-100); Mean Platelet Volume 9.7 fl (7.4-10.4); Monocytes Absolute Auto 0.5 K/mm3 (0.1-0.6); Monocytes Percent Auto 6.7 % (2.6-8.5); Neutrophils Absolute Auto 5.2 K/mm3 (1.3-6.7); Platelet Count Result 280 k/mm3 (150-375); Red Blood Count 4.98 M/mm3 (4.6-6.20); Red Cell Distribution Width 12.8 % (11.5-14.5); White Blood Count 8.1 K/mm3 (4.5-10.0)
[2021-02-27 10:56] LABS: INR 0.9; Partial Thromboplastin Time 26.3 SECONDS (22.3-36.8); Prothrombin Time 12.6 Seconds (11.1-14.7)
[2021-02-27] MEDS: HEPARIN SOD/D5W 100 UNITS/ML 25,000 UNITS/250 ML BAG 10 UNITS IV CONT (11:23)
[2021-02-27] MEDS: hydroCHLOROthiazide 12.5 MG CAPSULE PO (11:25)
[2021-02-27] MEDS: ROSUVASTATIN 10 MG TABLET 40 MG PO (11:25)
[2021-02-27] MEDS: CITALOPRAM HYDROBROMIDE 20 MG TABLET 40 MG PO (11:26)
[2021-02-27] MEDS: LORATADINE 10 MG TABLET PO (11:26)
[2021-02-27] MEDS: METOPROLOL TARTRATE 50 MG TAB 100 MG PO ×2 (11:26→20:36)
[2021-02-27 17:59] LABS: Partial Thromboplastin Time 55.3 SECONDS (22.3-36.8)
[2021-02-27] MEDS: HEPARIN SODIUM 5,000 UNITS/ML VIAL 3500 UNITS IV PUSH (18:20)
[2021-02-27] MEDS: amLODIPine BESYLATE 5 MG TABLET 10 MG PO (18:20)
[2021-02-27] MEDS: diphenhydrAMINE HCl CAP 25 MG CAPSULE PO (20:37)
[2021-02-28] VITALS (27 sets, daily range): BP systolic 107–135; BP diastolic 60–80; PULSE 57–77; RESP 12–23; TEMP 35.9–36.6; O2SAT 92–99
[2021-02-28 00:44] LABS: Partial Thromboplastin Time 121.8 SECONDS (22.3-36.8)
[2021-02-28 07:26] LABS: Basophils Absolute Auto 0.1 K/mm3 (0.0-0.1); Basophils Percent Auto 0.8 % (0.2-1.2); Eosinophils Absolute Auto 0.2 K/mm3 (0-0.3); Eosinophils Percent Auto 2.8 % (0-4.4); Hematocrit 46.4 % (42.0-52.0); Hemoglobin 15.7 g/dL (14.0-18.0); Immature Granulocyte Absolute 0.05 K/mm3 (0.00-0.031); Immature Granulocyte Percent A 0.6 % (0-0.5); Lymphocytes Percent Auto 29.1 % (18.3-44.2); Mean Corpuscular HGB Conc 33.8 g/dl (32-36); Mean Corpuscular Hemoglobin 29.7 pg (26-34); Mean Corpuscular Volume 87.9 fl (80-100); Mean Platelet Volume 9.8 fl (7.4-10.4); Monocytes Absolute Auto 0.6 K/mm3 (0.1-0.6); Monocytes Percent Auto 6.5 % (2.6-8.5); Neutrophils Absolute Auto 5.2 K/mm3 (1.3-6.7); Neutrophils Percent Auto 60.2 % (45.5-73.1); Platelet Count Result 271 k/mm3 (150-375); Red Blood Count 5.28 M/mm3 (4.6-6.20); Red Cell Distribution Width 12.9 % (11.5-14.5); White Blood Count 8.6 K/mm3 (4.5-10.0)
[2021-02-28 07:39] LABS: Partial Thromboplastin Time 73.1 SECONDS (22.3-36.8)
--- NOTE | 2021-02-28 08:18 | WPDMODSED ---
Moderate Sedation Note-Pt Data Patient Data Allergies Allergy/AdvReac Type Severity Reaction Status Date / Time No Known Allergies Allergy Unverified 03/01/20 20:37 Home Medications Medication Instructions Recorded Confirmed Type amlodipine 10 mg PO DAILY 03/01/20 02/27/21 History aspirin [Adult Low Dose Aspirin] 81 mg PO DAILY 03/01/20 02/27/21 History citalopram 40 mg PO DAILY 03/01/20 02/27/21 History diclofenac sodium 75 mg PO BID 03/01/20 02/27/21 History metoprolol tartrate 100 mg PO BID 03/01/20 02/27/21 History rosuvastatin 40 mg PO DAILY 03/01/20 02/27/21 History diphenhydramine HCl [Benadryl 25 mg PO HS 02/27/21 02/27/21 History Allergy] hydrochlorothiazide 12.5 mg PO DAILY 02/27/21 02/27/21 History levocetirizine 5 mg PO DAILY 02/27/21 02/27/21 History Current Medications: Active Medications Amlodipine Besylate (Amlodipine Besylate 5 Mg Tablet) 10 mg PO DAILY [facility] Last Admin: 02/27/21 18:20 Dose: 10 mg Documented by: Aspirin (Aspirin 81 Mg Chewable Tablet) 81 mg PO DAILY@0800 [facility] Last Admin: 02/27/21 08:35 Dose: 81 mg Documented by: Aspirin (Aspirin 81 Mg Enteric Tablet) 81 mg PO DAILY [facility] Last Admin: 02/27/21 11:26 Dose: Not Given Documented by: Citalopram Hydrobromide (Citalopram Hydrobromide 20 Mg Tablet) 40 mg PO DAILY [facility] Last Admin: 02/27/21 11:26 Dose: 40 mg Documented by: Diphenhydramine HCl (Diphenhydramine Hcl Cap 25 Mg Capsule) 25 mg PO HS [facility] Last Admin: 02/27/21 20:37 Dose: 25 mg Documented by: Heparin Sodium (Porcine) (Heparin Sodium 5,000 Units/Ml Vial) 4,000 units IV PUSH PRN PRN PRN Reason: aPTT less than 55 seconds Heparin Sodium (Porcine) (Heparin Sodium 5,000 Units/Ml Vial) 3,500 units IV PUSH PRN PRN PRN Reason: aPTT 55 - 70 seconds Last Admin: 02/27/21 18:20 Dose: 3,500 units Documented by: Hydrochlorothiazide (Hydrochlorothiazide 12.5 Mg Capsule) 12.5 mg PO DAILY [facility] Last Admin: 02/27/21 11:25 Dose: 12.5 mg Documented by: Heparin Sodium/Dextrose (Heparin Sodium/D5w 100 Units/Ml) 25,000 units in 250 mls @ 10 mls/hr IV CONT .Q24H [facility]; Protocol Last Titration: 02/28/21 06:29 Dose: 1,000 units/hr, 10 mls/hr Documented by: Loratadine (Loratadine 10 Mg Tablet) 10 mg PO DAILY [facility] Stop: 03/30/21 10:01 Last Admin: 02/27/21 11:26 Dose: 10 mg Documented by: Metoprolol Tartrate (Metoprolol Tartrate 50 Mg Tab) 100 mg PO Q12HR [facility] Last Admin: 02/27/21 20:36 Dose: 100 mg Documented by: Nitroglycerin (Nitroglycerin Sl 0.4 Mg Tablet) 0.4 mg SUBLINGUAL Q5MIN PRN PRN Reason: Chest Pain Rosuvastatin Calcium (Rosuvastatin 10 Mg Tablet) 40 mg PO DAILY [facility] Last Admin: 02/27/21 11:25 Dose: 40 mg Documented by: Sedation/Anesthesia: No previous sedation/anesthesia problems (including family history). [facility] Past Medical History Medical History Anxiety Bilateral plantar fasciitis CAD (coronary artery disease) Depression Dyslipidemia Essential hypertension Fibromyalgia Heel spur Obesity Surgical History Surgical History Cyst of skin and subcutaneous tissue Status post I&D H/O cardiac catheterization 2011 History of hemorrhoidectomy December 2015 Hx of tonsillectomy Stented coronary artery 2 stents 2011 Family History Family History (Updated 02/27/21 @ 01:39 by Michelle Harrell RN) Mother Osteoporosis Kidney stone Grandparent Diabetes mellitus Heart disease Father Cardiovascular disease Social History Social History Social History: Code status: Full code Smoking packs per day: 0.5 Smoking cigarettes per day: 10.0 Years smoked: 13 Smoking pack-years: 6.50 Smoking status: Former smoker Second hand tobacco smoke exposure: Yes Smoking end date: 02/27/90 Alcohol intake: former Drinks per week: 4 Substance use: never Substance use typ
--- NOTE | 2021-02-28 09:17 | PC.NURSE ---
0840- to labor relations officer for cardiac cath via be accompanied by JESSICA
[2021-02-28 09:47] LABS: Activated Clotting Time 125 sec (74-137)
--- NOTE | 2021-02-28 09:51 | PM.PNCARD ---
Progress Note: A&P Assessment and Plan (1) Non-ST elevation [place] (NSTEMI): Code(s): I21.4 - Non-ST elevation (NSTEMI) myocardial infarction Status: Acute Assessment and Plan: 60-year-old man with history of CAD s/p PCI (to RCA 2011), more recently s/p CABG X3 in February 2020 (BENT[place] to LAD,SVG to D1, SVG to OM. RCA stent was patent hence did not receive graft to RCA/PDA), HTN, HLD, depression who presents with chest pain His Cardiac catheterization was done today showed occluded OM graft, with severe disease in the 1st obtuse marginal, but patent graft to the diagonal and patent BENT[place]. he would need to have high-risk intervention to the obtuse marginal, because it is involving the left main. Meanwhile continue with medical treatment risk factor modification will arrange for transfer to [facility] for that (2) CAD (coronary artery disease): Code(s): I25.10 - Atherosclerotic heart disease of [place] coronary artery without angina pectoris Status: Acute Assessment and Plan: Continue ASA and Crestor (3) HTN (hypertension): Code(s): I10 - Essential (primary) hypertension Status: Acute Assessment and Plan: resume home meds, amlodipine and HCTZ (4) HLD (hyperlipidemia): Code(s): E78.5 - Hyperlipidemia, unspecified Status: Acute (5) Obesity: Code(s): E66.9 - Obesity, unspecified Status: Acute Subjective Date/time seen: 02/28/21 09:51 Feels better today, had chest tightness earlier, no shortness of breath. Cardiac catheterization was done today showed occluded OM graft, with severe disease in the 1st obtuse marginal, but patent graft to the diagonal and patent [place] Exam Const: General: no acute distress Eyes: Sclera: sclerae normal Neck: Neck: no JVD Carotids: no bruits Resp: Effort & Inspection: normal respiratory effort Auscultation: clear to auscultation bilaterally Cardio: Rate: regular rate and not tachycardic Rhythm: regular rhythm Heart sounds: no gallops, no murmurs and no rubs Skin: General skin exam: normal color Neuro: Cranial nerves: Yes Normal hearing present Speech: normal speech Extrem: General: normal to inspection and no edema Psych: Affect: normal affect Objective Data Vital Signs Vital Signs: Vital Signs - 24 hr 02/27/21 10:00 02/27/21 11:26 02/27/21 12:00 Temperature 36.4 C L Pulse Rate 67 66 63 Respiratory Rate 19 Blood Pressure 122/61 Pulse Oximetry 94 02/27/21 14:00 02/27/21 16:00 02/27/21 18:00 Temperature 36.7 C Pulse Rate 71 61 66 Respiratory Rate 19 Blood Pressure 119/61 Pulse Oximetry 96 02/27/21 20:00 02/27/21 20:36 02/27/21 22:00 Temperature 36.3 C L Pulse Rate 65 62 65 Respiratory Rate 20 Blood Pressure 117/59 L Pulse Oximetry 99 02/27/21 23:11 02/27/21 23:29 02/27/21 23:52 Temperature 36.7 C Pulse Rate 58 L 58 L Respiratory Rate 18 18 Blood Pressure 118/59 L Pulse Oximetry 97 98 98 02/28/21 02:00 02/28/21 04:00 02/28/21 06:00 Temperature 35.9 C L Pulse Rate 57 L 58 L 57 L Respiratory Rate 18 Blood Pressure 116/60 Pulse Oximetry 99 02/28/21 08:00 02/28/21 08:15 Temperature 36.2 C L Pulse Rate 61 62 Respiratory Rate 18 Blood Pressure 113/61 Pulse Oximetry 96 Intake/Output Intake/Output: Intake & Output 02/25/21 02/26/21 02/27/21 02/28/21 23:59 23:59 23:59 23:59 Intake Total 630.4 133.1 Output Total 200 1000 Balance 430.4 -866.9 Meds/Results Medications: Active Medications Generic Name Dose Route Start Last Admin Trade Name Freq PRN Reason Stop Dose Admin Amlodipine Besylate 10 mg 02/27/21 10:00 02/27/21 18:20 Amlodipine Besylate 5 Mg Tablet PO 10 mg DAILY YEHUDA Administration Aspirin 81 mg 02/27/21 08:00 02/27/21 08:35 Aspirin 81 Mg Chewable Tablet PO 81 mg DAILY@0800 [facility] Administration Aspirin 81 mg 02/27/21 10:00 02/27/21 11:26 Aspirin
--- NOTE | 2021-02-28 09:53 | WPDCARDPROC ---
Cardiac Cath Procedure Note Date of procedure:: 02/28/21 Performing physician:: Bishop Wolf MD Procedure: 1. Left heart catheterization, selective coronary angiogram. 2. Left ventricular angiogram. 3. saphenous venous grafts angiogram 4. BENTON angiogram 5. Conscious sedation, starting time is 8:50 a.m. ending time is 9:50 a.m. Transit Bus Operator: Dr. Bishop Wolf Complications: None. Sedation: Conscious sedation, local anesthesia, using 1 mg of Versed said, 50 mcg of fentanyl, and using 1% lidocaine for local anesthesia. History: 61 years old gentleman with history of coronary disease status post coronary bypass surgery last year, came in with chest pain and noted to have elevation of the troponin indicative of non ST elevation myocardial infarction, after further stabilization was brought to the labor arbitrator for elective cardiac catheterization for definitive diagnosis of coronary disease Technique: After informed consent was obtained from patient, was brought to the labor arbitrator, put in the labor arbitrator table, prepped and draped in usual sterile fashion. [place] sheath was inserted into the right common femoral artery, through the sheath 5 [place] JL4 catheter inserted, advanced to the left coronary artery, left coronary artery angiogram was obtained. The catheter was exchanged over guidewire into a 5 [place] JR4 catheter, advanced to the right coronary artery, right coronary artery angiogram was obtained. The catheter then was exchanged over guidewire into this 5 [place] pigtail catheter, advanced to left ventricle, left ventricular angiogram was obtained. the JR4 catheter was used to cannulate the BENTON, BENTON angiogram was done. Also the JR4 catheter was used to engage the graft to obtuse marginal but was totally occluded, and then the graft to the diagonal was visualized but with nonselective injection was able to visualize but then the catheter was exchanged over guidewire into 5 [place] AL1 catheter, advanced selectively to the takeoff of the graft, and subsequent angiogram was done to the diagonal graft. Patient tolerated the procedure no complication, taken from the labor arbitrator to his room in stable condition stable vital signs. Hemodynamics: aortic pressure 104/60 . LV pressure 104/04 with LVEDP of 14 mmHg Angiographic findings: Left main: Showed ostial and proximal 60% disease Lad medium size artery showed total occlusion at the origin at the ostium Left circumflex artery, medium size artery, showed subtotal occlusion at the ostium, and then the 1st OM seems to be medium-sized vessel has ostial disease bed slightly sluggish flow distally RCA: Dominant vessel, showed mid RCA significant irregularity with 75% disease in the PDA BENTON to LAD is patent with small distal vessel Saphenous venous venous graft to the obtuse marginal is totally occluded. Saphenous venous graft to diagonal is patent with good distal runoff LV: Normal size left ventricle with normal left ventricular systolic function. Summary: severe [place] coronary artery disease with totally occluded LAD in total occluded left circumflex, however patent BENT[place] and patent graft to the diagonal and totally occluded graft to the obtuse marginal, and was severe disease in the circ leading to only obtuse marginal, and moderate to severe disease in the PDA Recommendation: the culprit lesion seems to be obtuse marginal as the graft to the obtuse marginal seems to be occluded previously, with a stump there, best option is to attempt angioplasty to the obtuse marginal through left main which is high risk intervention.
[2021-02-28] MEDS: fentaNYL CITRATE INJ (*CRX) 100 MCG/2 ML VIAL 25 MCG IV PUSH (12:45)
--- NOTE | 2021-02-28 14:13 | PC.NURSE ---
1695- returned to room -post cardiac cath- right groin with dressing CDI- no hematoma- +2 pedal pulses- reviewed post procedure activity- pt acknowledged understanding- denies pain- monitor SR - VSS
[2021-02-28] MEDS: ROSUVASTATIN 10 MG TABLET 40 MG PO (14:53)
[2021-02-28] MEDS: amLODIPine BESYLATE 5 MG TABLET 10 MG PO (14:53)
[2021-02-28] MEDS: ASPIRIN 81 MG ENTERIC TABLET PO (14:54)
[2021-02-28] MEDS: hydroCHLOROthiazide 12.5 MG CAPSULE PO (14:54)
[2021-02-28] MEDS: METOPROLOL TARTRATE 50 MG TAB 100 MG PO (14:54)
[2021-02-28] MEDS: LORATADINE 10 MG TABLET PO (14:54)
[2021-02-28] MEDS: CITALOPRAM HYDROBROMIDE 20 MG TABLET 40 MG PO (14:55)
--- NOTE | 2021-02-28 17:27 | PC.NURSE ---
1700 - [facility] here to transfer pt to [facility]-report & documentation (including 2 CD's) given to [facility]
--- NOTE | 2021-03-01 08:14 | P.TS_ITS ---
Transfer Discharge Sum: Prov Provider Date of admission: 02/27/21 13:54 Primary care physician: Felicia Orozco, [employer] Admitting clinician: Bishop Wolf MD DS: Admitting Diagnosis Admitting Diagnosis Admitting Diagnosis: NSTEMI CAD DS: Discharge Diagnosis Discharge Diagnosis (1) Non-ST elevation GA (NSTEMI): Code(s): I21.4 - Non-ST elevation (NSTEMI) myocardial infarction Status: Acute Assessment and Plan: 60-year-old man with history of CAD s/p PCI (to RCA 2011), more recently s/p CABG X3 in February 2020 (BENTON to LAD,SVG to D1, SVG to OM. RCA stent was patent hence did not receive graft to RCA/PDA), HTN, HLD, depression who presents with chest pain His Cardiac catheterization was done today showed occluded OM graft, with severe disease in the 1st obtuse marginal, but patent graft to the diagonal and patent BENTON. he would need to have high-risk intervention to the obtuse marginal, because it is involving the left main. Meanwhile continue with medical treatment risk factor modification will arrange for transfer to [facility] for that (2) CAD (coronary artery disease): Code(s): I25.10 - Atherosclerotic heart disease of [place] coronary artery without angina pectoris Status: Acute Assessment and Plan: Continue ASA and Crestor (3) HTN (hypertension): Code(s): I10 - Essential (primary) hypertension Status: Acute Assessment and Plan: resume home meds, amlodipine and HCTZ (4) HLD (hyperlipidemia): Code(s): E78.5 - Hyperlipidemia, unspecified Status: Acute (5) Obesity: Code(s): E66.9 - Obesity, unspecified Status: Acute Transfer Discharge Sum: Med Medications Active and Home Medications: Home Medications amlodipine 10 mg PO DAILY 03/01/20 [History Confirmed 02/27/21] aspirin [Adult Low Dose Aspirin] 81 mg PO DAILY 03/01/20 [History Confirmed 02/27/21] citalopram 40 mg PO DAILY 03/01/20 [History Confirmed 02/27/21] diclofenac sodium 75 mg PO BID 03/01/20 [History Confirmed 02/27/21] metoprolol tartrate 100 mg PO BID 03/01/20 [History Confirmed 02/27/21] rosuvastatin 40 mg PO DAILY 03/01/20 [History Confirmed 02/27/21] diphenhydramine HCl [Benadryl Allergy] 25 mg PO HS 02/27/21 [History Confirmed 02/27/21] hydrochlorothiazide 12.5 mg PO DAILY 02/27/21 [History Confirmed 02/27/21] levocetirizine 5 mg PO DAILY 02/27/21 [History Confirmed 02/27/21] Transfer Discharge Sum: Hosp Hospital Course Hospital course: Kasi Vernon is a 61 year old male Time Spent with Patient Time attestation: Total time spent providing and/or coordinating transfer services:30 min Exam Const: General: no acute distress Eyes: Sclera: sclerae normal Neck: Neck: no JVD Carotids: no bruits Resp: Effort & Inspection: normal respiratory effort Auscultation: clear to auscultation bilaterally Cardio: Rate: regular rate and not tachycardic Rhythm: regular rhythm Heart sounds: no gallops, no murmurs and no rubs Skin: General skin exam: normal color Neuro: Cranial nerves: Yes Normal hearing present Speech: normal speech Extrem: General: normal to inspection and no edema Psych: Affect: normal affect DS: Data Data Completed and Pending Labs on day of discharge: Labs from last 24 hours 02/28/21 09:43 Activ Coag Time Jose 125
== END 2021-02-28 17:30 | disposition short-term general hospital (02) | DRG 282 ==
LOC: ANHED 23:52 → ANHIMU 02-27 00:49
PROVIDERS: Emergency Medicine; Internal Medicine; Admitting Provider Specialist; Emergency Provider Emergency Medicine; PCP Nurse Practitioner; Visit Provider Specialist
PROC: 4A023N7 Measurement of Cardiac Sampling and Pressure, Left Heart, Percutaneous Approach (ICD-10-PCS; CPT 93459; principal; 2021-02-28 09:00)
DX: I21.4 Non-ST elevation (NSTEMI) myocardial infarction (principal); I25.10 Atherosclerotic heart disease of native coronary artery without angina pectoris; I10 Essential (primary) hypertension; E78.5 Hyperlipidemia, unspecified; E66.9 Obesity, unspecified; M79.7 Fibromyalgia; F41.9 Anxiety disorder, unspecified; F32.9 Major depressive disorder, single episode, unspecified; Z68.39 Body mass index [BMI] 39.0-39.9, adult; Z95.5 Presence of coronary angioplasty implant and graft; Z87.891 Personal history of nicotine dependence
CPT/HCPCS: 36415; 71046; 71275; 80048; 84484; 85025; 85380; 85610; 85730; 93005; 93306; 93459; 96365; 96366; 99285; A9270; C1887; C1894; G0378; J0461; J1644; J2250; J3010; J7030; J7040; Q9967